=== PATIENT | male | born 1950 | race Caucasian/White ===

== ENCOUNTER → 2019-03-04 | Outpatient (REF) | payer MEDICARE ==
[2019-03-04 12:10] LABS: ALT/SGPT 25 U/L (12-78); BILIRUBIN,TOTAL 0.4 MG/DL (0.2-1.0); BLOOD UREA NITROGEN 16 MG/DL (7-18); CALCIUM LEVEL 9.7 MG/DL (8.8-10.2); CARBON DIOXIDE LEVEL 29 MEQ/L (21-32); CHLORIDE LEVEL 108 MEQ/L (98-107); CHOLESTEROL LEVEL 187 MG/DL (<200); CHOLESTEROL RISK RATIO 3.169 (<5); CREATININE FOR GFR 1.06 MG/DL (0.70-1.30); GLOMERULAR FILTRATION RATE > 60.0 (>49); GLUCOSE, FASTING 94 MG/DL (70-100); HDL CHOLESTEROL 59 MG/DL (>40); LDL CHOLESTEROL 106 MG/DL (<100); NON-HDL-C 128 MG/DL; POTASSIUM SERUM 4.4 MEQ/L (3.5-5.1); SODIUM LEVEL 142 MEQ/L (136-145); TOTAL PROTEIN 7.3 GM/DL (6.4-8.2); TRIGLYCERIDES LEVEL 108 MG/DL (<150)
[2019-03-04 19:34] LABS: FREE T4 0.88 NG/DL (0.76-1.46)
== END ==
LOC: M SFHCCLAY 07:25
PROVIDERS: ATTEND Family Medicine
DX: Z13.220 Encounter for screening for lipoid disorders (principal); Z13.1 Encounter for screening for diabetes mellitus; Z11.59 Encounter for screening for other viral diseases; R23.2 Flushing; R78.89 Finding of other specified substances, not normally found in blood
CPT/HCPCS: 80053; 80061; 84439; 84443; G0472

== ENCOUNTER 2019-08-30 05:56 | Day surgery (SDC) | payer MEDICARE ==
[~2019-08-30] VITALS: Ht 175.3 cm; Wt 86.7 kg
[~2019-08-30 05:56] MED LIST: AMIO200T PO; ELIQ5TAB PO; OMEP10CASR PO
[2019-08-30] MEDS ORDERED: LR 1,000 ML IV ONE (07:00)
[2019-08-30] MEDS ORDERED: PROPOFOL 200 MG/20 ML VIAL As Ordered ONE (07:03)
[2019-08-30] MEDS ORDERED: LIDOCAINE 2% INJ 100 MG/5 ML SDV (FOR ANES.) As Ordered ONE (07:04)
--- NOTE | 2019-08-30 08:05 | RO ---
DATE: 08/30/2019 PROCEDURE: Cardioversion. DIAGNOSIS: Atrial fibrillation. POSTPROCEDURE: Resumption of sinus rhythm. Anesthesiology: Jessi Salazar CRNA BRIEF HISTORY: Mr. Benavidez is a 69-year-old man who was diagnosed with persistent atrial fibrillation in March 2019. He has preserved left ventricular systolic function and no evidence for ischemia on stress testing. Nevertheless due to reduced exertional tolerance, it was decided to attempt to synagogue of sinus mechanism. He was started on amiodarone and has been chronically anticoagulated with Eliquis. On outpatient basis the appropriate consent was obtained. PROCEDURE NOTE: Procedure was performed in recovery room. The patient presented in fasting condition. Anesthesiology provided sedation. After appropriate sedation was accomplished he was cardioverted with defibrillator patches applied in standard position with synchronized shock. Initially 200 joules were delivered which failed to restore sinus rhythm. Subsequently second shock was applied with 360 joules in synchronized fashion that led to synagogue of sinus rhythm. The patient tolerated the procedure well and there were no immediate complications. A 12-lead ECG is currently pending. He will be seen in followup in our office next week. Will continue chronic medications. HELIO
[2019-08-30 08:15] VITALS: BP 162/78
--- NOTE | 2019-08-30 08:27 | ECGEPIP ---
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
--- NOTE | 2019-08-30 08:38 | ECGEPIP ---
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
== END 2019-08-30 08:25 | disposition home or self-care (01) ==
LOC: M SDC 05:56
PROVIDERS: ATTEND Internal Medicine Cardiovascular Disease
DX: I48.19 Other persistent atrial fibrillation (principal); Z79.899 Other long term (current) drug therapy; Z88.8 Allergy status to other drugs, medicaments and biological substances; Z85.51 Personal history of malignant neoplasm of bladder

== ENCOUNTER → 2020-02-14 | Outpatient (REF) | payer MEDICARE ==
[~2020-02-14] MED LIST changes: -AMIO200T PO; +AMIO200T3 PO
[2020-02-14 11:52] LABS: BASO % 0.7 % (0.0-1.0); EOS # 0.1 10^3/uL (0.0-0.5); EOS % 0.9 % (0.0-3.0); HEMATOCRIT 39.2 % (42.0-52.0); HEMOGLOBIN 13.1 g/dl (13.5-17.5); LYMPH # 1.5 10^3/uL (1.5-5.0); LYMPH % 27.7 % (24.0-44.0); MEAN CORPUSCULAR HEMOGLOBIN 32.9 pg (27.0-33.0); MEAN CORPUSCULAR HGB CONC 33.4 g/dl (32.0-36.5); MEAN CORPUSCULAR VOLUME 98.5 fl (80.0-96.0); MONO # 0.7 10^3/uL (0.0-0.8); MONO % 12.2 % (0.0-5.0); NEUTROPHILS # 3.2 10^3/uL (1.5-8.5); NEUTROPHILS % 58.3 % (36.0-66.0); PLATELET COUNT, AUTOMATED 221 10^3/uL (150-450); RED BLOOD COUNT 3.98 10^6/uL (4.30-6.10); WHITE BLOOD COUNT 5.5 10^3/uL (4.0-10.0)
[2020-02-14 12:08] LABS: BLOOD UREA NITROGEN 16 MG/DL (7-18); CALCIUM LEVEL 9.3 MG/DL (8.8-10.2); CARBON DIOXIDE LEVEL 26 MEQ/L (21-32); CHLORIDE LEVEL 108 MEQ/L (98-107); CREATININE FOR GFR 1.14 MG/DL (0.70-1.30); FREE T4 1.27 NG/DL (0.76-1.46); GLOMERULAR FILTRATION RATE > 60.0 (>49); GLUCOSE, FASTING 96 MG/DL (70-100); POTASSIUM SERUM 4.3 MEQ/L (3.5-5.1); SODIUM LEVEL 138 MEQ/L (136-145)
[2020-02-14 18:34] LABS: TOTAL T3 91.1 NG/DL (60.0-181.0)
== END ==
LOC: M LABDRAWC 11:16
PROVIDERS: ATTEND Internal Medicine Cardiovascular Disease
DX: I48.19 Other persistent atrial fibrillation (principal); Z79.899 Other long term (current) drug therapy

== ENCOUNTER → 2020-05-20 | Outpatient (REF) | payer MEDICARE ==
[2020-05-20 12:21] LABS: BASO # 0.1 10^3/uL (0.0-0.2); BASO % 1.3 % (0.0-1.0); EOS # 0.1 10^3/uL (0.0-0.5); EOS % 1.4 % (0.0-3.0); HEMATOCRIT 41.8 % (42.0-52.0); HEMOGLOBIN 13.9 g/dl (13.5-17.5); LYMPH # 1.7 10^3/uL (1.5-5.0); LYMPH % 30.1 % (24.0-44.0); MEAN CORPUSCULAR HEMOGLOBIN 32.5 pg (27.0-33.0); MEAN CORPUSCULAR HGB CONC 33.3 g/dl (32.0-36.5); MEAN CORPUSCULAR VOLUME 97.7 fl (80.0-96.0); MONO # 0.8 10^3/uL (0.0-0.8); MONO % 15.1 % (0.0-5.0); NEUTROPHILS # 2.9 10^3/uL (1.5-8.5); NEUTROPHILS % 51.9 % (36.0-66.0); PLATELET COUNT, AUTOMATED 235 10^3/uL (150-450); RED BLOOD COUNT 4.28 10^6/uL (4.30-6.10); WHITE BLOOD COUNT 5.6 10^3/uL (4.0-10.0)
[2020-05-20 12:23] LABS: BLOOD UREA NITROGEN 18 MG/DL (7-18); CALCIUM LEVEL 9.4 MG/DL (8.8-10.2); CARBON DIOXIDE LEVEL 29 MEQ/L (21-32); CHLORIDE LEVEL 109 MEQ/L (98-107); CREATININE FOR GFR 1.26 MG/DL (0.70-1.30); GLOMERULAR FILTRATION RATE > 60.0 (>49); GLUCOSE, FASTING 106 MG/DL (70-100); POTASSIUM SERUM 4.9 MEQ/L (3.5-5.1); SODIUM LEVEL 143 MEQ/L (136-145)
== END ==
LOC: M LABDRAWC 11:36
PROVIDERS: ATTEND Internal Medicine Cardiovascular Disease
DX: I48.19 Other persistent atrial fibrillation (principal)

== ENCOUNTER → 2020-05-29 | Outpatient (CLI) | payer MEDICARE | LOC: M LABSMTC 14:17 | PROVIDERS: ATTEND Internal Medicine Cardiovascular Disease | DX: I48.19 Other persistent atrial fibrillation (principal) | CPT/HCPCS: C9803; U0003 ==

== ENCOUNTER → 2020-08-26 | Outpatient (REF) | payer MEDICARE ==
[2020-08-26 12:14] LABS: CHOLESTEROL RISK RATIO 3.139 (<5)
== END ==
LOC: M LABDRAWC 11:17
PROVIDERS: ATTEND Physician Assistant
DX: Z13.220 Encounter for screening for lipoid disorders (principal); Z79.899 Other long term (current) drug therapy

== ENCOUNTER → 2020-09-09 | Outpatient (REF) | payer MEDICARE | LOC: M LABDRAWC 11:32 | PROVIDERS: ATTEND Physician Assistant | DX: I48.19 Other persistent atrial fibrillation (principal) ==

== ENCOUNTER → 2020-11-13 | Outpatient (REF) | payer MEDICARE ==
[2020-11-13 11:43] LABS: BASO # 0.1 10^3/uL (0.0-0.2); BASO % 0.9 % (0.0-1.0); EOS # 0.1 10^3/uL (0.0-0.5); EOS % 2.3 % (0.0-3.0); HEMOGLOBIN 13.6 g/dl (13.5-17.5); LYMPH # 1.9 10^3/uL (1.5-5.0); LYMPH % 33.4 % (24.0-44.0); MEAN CORPUSCULAR HEMOGLOBIN 31.8 pg (27.0-33.0); MEAN CORPUSCULAR HGB CONC 32.4 g/dl (32.0-36.5); MEAN CORPUSCULAR VOLUME 98.1 fl (80.0-96.0); NEUTROPHILS # 2.6 10^3/uL (1.5-8.5); NEUTROPHILS % 46.2 % (36.0-66.0); PLATELET COUNT, AUTOMATED 228 10^3/uL (150-450); RED BLOOD COUNT 4.28 10^6/uL (4.30-6.10); WHITE BLOOD COUNT 5.6 10^3/uL (4.0-10.0)
[2020-11-13 12:25] LABS: BLOOD UREA NITROGEN 19 MG/DL (7-18); CALCIUM LEVEL 9.1 MG/DL (8.8-10.2); CARBON DIOXIDE LEVEL 30 MEQ/L (21-32); CHLORIDE LEVEL 110 MEQ/L (98-107); CREATININE FOR GFR 1.11 MG/DL (0.70-1.30); FREE T4 1.14 NG/DL (0.76-1.46); GLOMERULAR FILTRATION RATE > 60.0 (>49); GLUCOSE, FASTING 93 MG/DL (70-100); POTASSIUM SERUM 4.6 MEQ/L (3.5-5.1); SODIUM LEVEL 142 MEQ/L (136-145)
== END ==
LOC: M LABDRAWC 11:16
PROVIDERS: ATTEND Internal Medicine Cardiovascular Disease
DX: Z01.810 Encounter for preprocedural cardiovascular examination (principal); I48.19 Other persistent atrial fibrillation

== ENCOUNTER → 2020-11-30 | Outpatient (REF) | payer MEDICARE ==
[2020-11-30 12:41] LABS: ALBUMIN 4.2 GM/DL (3.2-5.2); ALT/SGPT 34 U/L (12-78); BILIRUBIN,TOTAL 0.4 MG/DL (0.2-1.0); BLOOD UREA NITROGEN 21 MG/DL (7-18); CALCIUM LEVEL 9.4 MG/DL (8.8-10.2); CARBON DIOXIDE LEVEL 27 MEQ/L (21-32); CHLORIDE LEVEL 105 MEQ/L (98-107); GLOMERULAR FILTRATION RATE > 60.0 (>49); GLUCOSE, FASTING 92 MG/DL (70-100); POTASSIUM SERUM 4.5 MEQ/L (3.5-5.1); SODIUM LEVEL 139 MEQ/L (136-145); TOTAL PROTEIN 7.6 GM/DL (6.4-8.2)
== END ==
LOC: M LABDRAWC 11:10
PROVIDERS: ATTEND Physician Assistant
DX: R79.89 Other specified abnormal findings of blood chemistry (principal); E78.2 Mixed hyperlipidemia

== ENCOUNTER → 2020-12-17 | Outpatient (CLI) | payer MEDICARE | LOC: M LABSMTC 09:54 | PROVIDERS: ATTEND Internal Medicine Cardiovascular Disease | DX: Z11.52 Encounter for screening for COVID-19 (principal) ==

== ENCOUNTER 2021-01-11 10:32 | Inpatient (IN) | payer MEDICARE ==
[2021-01-11] MEDS ORDERED: ATOR1TAB19 (11:03)
[2021-01-11] MEDS ORDERED: AMLO1TAB24 (11:03)
--- NOTE | 2021-01-11 11:16 | REP ---
INDICATION: dizzy on eliquis. COMPARISON: 03/22/2010 the only prior TECHNIQUE: 4.5 mm contiguous transaxial sections were obtained from the skull base to the cerebral convexities with thin cuts through the posterior fossa without the administration of intravenous contrast. FINDINGS: The ventricles and sulci are consistent with the patient's age. There are no extra-axial fluid collections. There is no mass effect. The deep cerebral white matter is consistent with the patient's age. The orbital and petrous structures, cerebellopontine angles, and posterior fossa are unremarkable. The sella turcica, cavernous, and paracavernous structures are essentially unremarkable. The visualized portions of the paranasal sinuses and mastoid air cells are clear. Images of the skull base show no gross abnormality. IMPRESSION: Essentially unremarkable CT examination of the brain. There has been no significant change compared to the prior exam. <Electronically signed by Jack Lindsay > 01/11/21 [id number]
--- NOTE | 2021-01-11 11:26 | REP ---
INDICATION: CHEST PAIN. COMPARISON: 08/15/2016 TECHNIQUE: Portable FINDINGS: The technique utilized in obtaining the radiograph has magnified the cardiac silhouette and accentuated the interstitial markings. The superior mediastinal structures are midline. The cardiac silhouette is unremarkable in size, shape, and position. The diaphragmatic surfaces of the lungs are regular, and the costophrenic angles are clear. The pulmonary castillo are clear. The imaged osseous structures are intact. IMPRESSION: There is no acute cardiopulmonary disease. No significant change from the prior exam <Electronically signed by Jack Lindsay > 01/11/21 1129
[2021-01-11 11:43] LABS: BASO # 0.1 10^3/uL (0.0-0.2); BASO % 0.9 % (0.0-1.0); EOS % 0.2 % (0.0-3.0); HEMATOCRIT 40.8 % (42.0-52.0); HEMOGLOBIN 13.4 g/dl (13.5-17.5); LYMPH # 0.5 10^3/uL (1.5-5.0); LYMPH % 9.5 % (24.0-44.0); MEAN CORPUSCULAR HEMOGLOBIN 31.6 pg (27.0-33.0); MEAN CORPUSCULAR HGB CONC 32.8 g/dl (32.0-36.5); MEAN CORPUSCULAR VOLUME 96.2 fl (80.0-96.0); MONO # 0.6 10^3/uL (0.0-0.8); MONO % 11.3 % (2.0-8.0); NEUTROPHILS # 4.3 10^3/uL (1.5-8.5); NEUTROPHILS % 77.6 % (36.0-66.0); PLATELET COUNT, AUTOMATED 291 10^3/uL (150-450); RED BLOOD COUNT 4.24 10^6/uL (4.30-6.10); WHITE BLOOD COUNT 5.6 10^3/uL (4.0-10.0)
[2021-01-11 11:58] LABS: INR 1.26; PROTHROMBIN TIME 16.1 SECONDS (12.5-14.3)
[2021-01-11 11:59] LABS: PARTIAL THROMBOPLASTIN TIME 30.9 SECONDS (24.2-38.5)
[2021-01-11 12:20] LABS: ALBUMIN 4.1 GM/DL (3.2-5.2); BILIRUBIN,DIRECT 0.3 MG/DL (0.0-0.2); BILIRUBIN,TOTAL 0.7 MG/DL (0.2-1.0); FREE T4 1.4 NG/DL (0.76-1.46); THYROID STIMULATING HORMONE 5.36 uIU/ML (0.358-3.740); TOTAL PROTEIN 7.6 GM/DL (6.4-8.2)
[2021-01-11] MEDS ORDERED: ACETAMINOPHEN TAB 650MG DOSE (2X325MG) PO PRN (16:30)
[2021-01-11] MEDS ORDERED: MOM 30ML SUSPENSION UDC PO PRN (16:30)
[2021-01-11] MEDS ORDERED: AMIODARONE 200 MG TAB (PACERONE) PO SCH (18:00)
[2021-01-11 18:20] VITALS: BP 143/91
--- NOTE | 2021-01-11 18:25 | HPEPDOC ---
[facility] Medical History & Physical Date of Admission January 11, 2021 Date of Service: January 11, 2021 Primary Care Physician: AYANA MORALES DO Attending Physician: CLAUDINE AHUJA MD History and Physical CHIEF COMPLAINT: Light-headedness/Pre-syncope HISTORY OF PRESENT ILLNESS: Patient is a 70 year old male with a past medical history significant for persistent atrial fibrillation s/p 2 cryoablation currently on Amiodarone and Eliquis, hypertension, bladder cancer, and bilateral hearing loss who presented to the [facility] ER with complaint of feeling lightheaded. He was diagnosed with atrial fibrillation in 03/2019 at which point he was started on Amiodarone and anticoagulation. It was felt that he was likely in atrial fibrillation for a longer period of time as he was asymptomatic at the time of diagnosis. He had received an exercise stress test in 2018 and noted to have baseline atrial fibrillation with inappropriate heart rate response and exercise induced ST depression. On 08/30/2019 the patient received DC cardioversion but subsequently had a relapse on 09/09/2019. He was then sent for cryoablation in [place] by Dr. Kelly on 06/03/2020. He once again relapsed approximately 2 weeks after. Since that time the patient had noticed an increase in fatigue. On 12/22/20 he was once again sent to Dr. Kelly in [place] for a repeat ablation. Patient stated that since that time he has had worsening of his fatigue. Most recently he stated that for the past three days he has experienced several episodes where he feels light-headed like he is about to pass out. During these episodes he feels his vision gets dark. Patient states that he feels these episodes come on suddenly and it feels like his heart is jumping out of his chest. These episodes last a few minutes and end abruptly. Patient stated that his first episode was when he was out picking rhubarb to make rhubarb pie. He developed the feeling of his heart racing and felt like he was going to pass o ut. He stated this episode lasted only a couple of minutes. He had a similar episode when walking to get his mail. His most recent episode was when he was working on his boat. Each of these episodes lasted on a couple minutes before stopping. He denied any chest pain or pressure during these episodes but stated that he did get some sharp chest pain when driving his car although this was not during one of his episodes. In the ER the patient was vitally stable. He was in atrial fibrillation however rate controlled. He received a chest x-ray and head CT which were essentially normal. Laboratory studies were normal. A STAT echocardiogram was obtained in the ED which was reportedly negative for any acute findings. PAST MEDICAL HISTORY: 1. Long Standing Persistent Atrial Fibrillation 2. Hypertension 3. Bilateral Hearing Loss 4. History of Bladder cancer PAST SURGICAL HISTORY: 1. Cystoscopy with bladder resection 2. DC Cardioversion 3. Cryoablation 06/03/2020 and repeat 12/22/20 SOCIAL HISTORY: Patient lives at home with his . He is independent with his ADLs. He is a former smoker. He started smoking at the age of [age] years old and quit in the . He smoked approximately 1 ppd. He denies any IV drug use. His PCP is Dr. Morales. His Hoop Expander is Dr. Davis FAMILY HISTORY: Patients mother has a history of congestive heart failure, hypertension, and bladder cancer. His father from a bleeding ulcer. ALLERGIES: Please see below. REVIEW OF SYSTEMS: CONSTITUTIONAL: Denies fevers, chills, unintentional weightloss or weight gain. Denies night sweats HEENT: Denies cough. Denies dysphagia or odynophagia. CARDIOVASCULAR: Admits to a brief episode of chest pain described as sharp. Denies chest pressure. Admits to feeling like he is going to pass out. RESPIRATORY: Denies shortness of breath. Denies cough. Denies wheeze/ GASTROINTESTINAL: Denies abdominal pain. denies nausea, vomiting, diarrhea, or constipation GENITOURINARY: Denies dysuria, increased frequency, urgency SKIN: Denies any rashes or lesions MUSCULOSKELETAL: Denies any muscle weakness. NEUROLOGICAL: Admits to feeling lightheaded. Admits to changes in vision as feeling like his vision is going dark PSYCHIATRIC: Denies depression or anxiety ENDOCRINE: Denies heat intolerance or cold intolerance. Denies diabetes mellitus HEMATOLOGIC/LYMPHATIC: Denies easy bruising or bleeding. Denies history of DVT or PE HOME MEDICATIONS: Please see below. PHYSICAL EXAMINATION: VITAL SIGNS: Temperature 96.8, pulse 75, respiratory rate 14, blood pressure 126/80, pulse oximetry 98% on room air. GENERAL APPEARANCE: Patient is awake, alert, and oriented. Appears in no acute distress. Lying comfortably in bed HEENT: Atrauamtic, normocephalic. Eyes are nonicteric. Trachea is midline. Mu cous membranes are pink and moist. CARDIOVASCULAR: Normal S1, S2. Regular rate. irregularly irregular rhythm. No clicks, rubs, or murmurs LUNGS: Clear vesicular breath sounds bilaterally. Good respiratory effort. No wheezes, rhonchi, or rales ABDOMEN: Soft, nondistended. nontender. Normoactive bowel sounds EXTREMITIES: No edema. Full and equal pulses in bilateral upper and lower extremities NEUROLOGICAL: No focal neurological deficits PSYCHIATRIC: Mood and affect appear appropriate LABORATORY DATA: See below. IMAGING: INDICATION: CHEST PAIN. COMPARISON: 08/15/2016 TECHNIQUE: Portable FINDINGS: The technique utilized in obtaining the radiograph has magnified the cardiac silhouette and accentuated the interstitial markings. The superior mediastinal structures are midline. The cardiac silhouette is unremarkable in size, shape, and position. The diaphragmatic surfaces of the lungs are regular, and the costophrenic angles are clear. The pulmonary castillo are clear. The imaged osseous structures are intact. IMPRESSION: There is no acute cardiopulmonary disease. No significant change from the prior exam <Electronically signed by Jack Lindsay > 01/11/21 1122 INDICATION: dizzy on eliquis. COMPARISON: 03/22/2010 the only prior TECHNIQUE: 4.5 mm contiguous transaxial sections were obtained from the skull base to the cerebral convexities with thin cuts through the posterior fossa without the administration of intravenous contrast. FINDINGS: The ventricles and sulci are consistent with the patient's age. There are no extra-axial fluid collections. There is no mass effect. The deep cerebral white matter is consistent with the patient's age. The orbital and petrous structures, cerebellopontine angles, and posterior fossa are unremarkable. The sella turcica, cavernous, and paracavernous structures are essentially unremarkable. The visualized portions of the paranasal sinuses and mastoid air cells are clear. Images of the skull base show no gross abnormality. IMPRESSION: Essentially unremarkable CT examination of the brain. There has been no sign ificant change compared to the prior exam. MICROBIOLOGY: Please see below. ASSESSMENT: Patient is a 70 year old male with a past medical history significant for atrial fibrillation diagnosed in 03/2019 s/p cryoablation x2, hypertension, bladder cancer s/p resection who presented to the [facility] ER with complaint of 3 episodes of pre-syncope. Patient has had three episodes of fe eling lightheaded and a feeling of his heart racing associated with activity. Patient was admitted for evaluation and management . PLAN: 1. Pre-syncope likely 2/2 cardiogenic etiology -Patient presented with episodes of pre-syncope. He does have a history of Atrial fibrillation that was diagnosed in 03/2019. He had been on amiodarone and eliquis since that time. In 2018 he had an exercise stress test which demonstrated baseline atrial fibrillation with inappropriate rapid rate response. Due to the patients persistent symptoms a rhythm control strategy was pursued. He is currently s/p DC cardioversion in 2019 and cryoablation x2. -Patients symptoms appears to be related to exertion. His previous stress test did demonstrated inappropriate rate response previously. It is possible that his symptoms are secondary to this. However may also consider a possible bradyarrhythmia although this would be unlikely to occur with exertion as suggested in the patients three episodes -Echocardiogram was obtained in the ED. No significant findings were noted on STAT read -Will continue telemetry monitoring. If no significant findings can likely discharge. May consider repeat stress test outpatient. -Cardiology Consulted. 2. Long-standing Persistent Atrial Fibrillation -Patient diagnosed with atrial fibrillation in 03/2019. Started on anticoagulation and amiodarone at that time. DC cardioversion on 08/30/2019 with relapse on 09/09/19. Cryoablation on 06/03/2020 with relapse 2 weeks after. Repeat ablation on 12/22/2020. Patient currently in atrial fibrillation. He is rate controlled -Continue Amiodarone and Eliquis -Given patients long standing atrial fibrillation unlikely that he will successfully be cardioverted 3. Hypertension -Patient noted history of HTN. Documented white coat hypertension although he reported elevated BPs at home. He takes Norvasc at home. Will continue Norvasc. -Patient states that he was previously placed on lisinopril however it had dropped his BP too much. Will avoid Lisinopril 4. Elevated BNP -Patient has an elevated BNP. He appears euvolemic. Possible age related increase in BNP. 5. Subclinical Hypothyroidism -Elevated TSH with normal Free T4. Possibly related to Amiodarone use. Will likely fully develop hypothyroidism 6. DVT prophylaxis -Continue Eliquis DISPOSITION: Telemetry overnight. Anticipate discharge in 24-48 hours Vital Signs Vital Signs Date Time Temp Pulse Resp B/P (MAP) Pulse Ox O2 Delivery O2 Flow Rate FiO2 01/11/21 15:02 79 20 98 Room Air 01/11/21 15:00 125/78 (94) 01/11/21 10:52 98.4 Laboratory Data Labs 24H Laboratory Tests 2 01/11/21 11:20: Immature Granulocyte % (Auto) 0.5, Neutrophils (%) (Auto) 77.6H, Lymphocytes (%) (Auto) 9.5L, Monocytes (%) (Auto) 11.3H, Eosinophils (%) (Auto) 0.2, Basophils (%) (Auto) 0.9, Neutrophils # (Auto) 4.3, Lymphocytes # (Auto) 0.5L, Monocytes # (Auto) 0.6, Eosinophils # (Auto) 0.0, Basophils # (Auto) 0.1, Nucleated Red Blood Cells % (auto) 0.0, Prothrombin Time 16.1H, Prothromb Time International Ratio 1.26, Activated Partial Thromboplast Time 30.9, Total Bilirubin 0.7, Direct Bilirubin 0.3H, Aspartate Amino Transf (AST/SGOT) 17, Alanine Aminotransferase (ALT/SGPT) 31, Alkaline Phosphatase 111, GO-Qis-S-Type Natriuretic Peptide 1183H, Total Protein 7.6, Albumin 4.1, Albumin/Globulin Ratio 1.2, Lipase 55L, Thyroid Stimulating Hormone (TSH) 5.360H, Free Thyroxine 1.40 01/11/21 11:25: POC Troponin I (Misc) 0.01 01/11/21 11:27: POC Glucose (Misc Panel) 126H, POC Sodium (Misc Panel) 138, POC Potassium (Misc Panel) 4.3, POC Chloride (Misc Panel) 106, POC Total CO2 (Misc Panel) 25.0, POC Blood Urea Nitrogen (Misc Panel 22, POC Ionized Calcium (Misc Panel) 4.6, POC Creatinine (Misc Panel) 1.4H, POC Hematocrit (Misc Panel) 40.0 CBC/BMP Laboratory Tests 01/11/21 11:20 Microbiology Microbiology 01/11/21 Blood Culture, Received Pending 01/11/21 Respiratory Virus Panel (PCR) (JAY) - Final, Complete 01/11/21 Blood Culture, Received Pending Home Medications Scheduled Amiodarone HCl (Amiodarone HCl) 200 Mg Tablet, 200 MG PO QPM Amlodipine Besylate (Amlodipine Besylate) 5 Mg Tablet, 5 MG QHS Apixaban (Eliquis) 5 Mg Tablet, 5 MG PO BID Atorvastatin Calcium (Atorvastatin Calcium) 10 Mg Tablet, 10 MG QHS Omeprazole (Omeprazole) 10 Mg Capsule.dr, 20 MG PO DAILY Allergies Coded Allergies: hydrochlorothiazide (Verified Adverse Reaction, Mild, nausea, 01/11/21) A-FIB/CHADSVASC A-FIB History Current/History of A-Fib/PAF?: Yes Current PO Anticoag Therapy: Yes ABRAHAM SEVERINO DO January 11, 2021 17:35
[2021-01-11 19:00] LABS: BLOOD UREA NITROGEN 17 MG/DL (7-18); CALCIUM LEVEL 9.5 MG/DL (8.8-10.2); CARBON DIOXIDE LEVEL 28 MEQ/L (21-32); CHLORIDE LEVEL 108 MEQ/L (98-107); CREATININE FOR GFR 1.19 MG/DL (0.70-1.30); GLOMERULAR FILTRATION RATE > 60.0 (>49); GLUCOSE, FASTING 90 MG/DL (70-100); POTASSIUM SERUM 4.1 MEQ/L (3.5-5.1); SODIUM LEVEL 141 MEQ/L (136-145)
[2021-01-11 20:12] VITALS: BP 139/88
[2021-01-11] MEDS: APIXABAN 5 MG TAB (ELIQUIS) PO SCH (20:12)
[2021-01-11] MEDS ORDERED: ATORVASTATIN 10 MG TAB PO SCH (21:00)
[2021-01-11] MEDS ORDERED: amLODIPine 5 MG TAB PO SCH (21:00)
[2021-01-11 22:00] VITALS: BP 137/88
--- NOTE | 2021-01-12 05:50 | ECGEPIP ---
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
[2021-01-12 06:00] VITALS: BP 124/87
[2021-01-12 06:27] LABS: HEMOGLOBIN 12.9 g/dl (13.5-17.5); MEAN CORPUSCULAR HEMOGLOBIN 31.9 pg (27.0-33.0); MEAN CORPUSCULAR HGB CONC 33.1 g/dl (32.0-36.5); MEAN CORPUSCULAR VOLUME 96.5 fl (80.0-96.0); PLATELET COUNT, AUTOMATED 284 10^3/uL (150-450); RED BLOOD COUNT 4.04 10^6/uL (4.30-6.10); WHITE BLOOD COUNT 5.1 10^3/uL (4.0-10.0)
[2021-01-12 06:47] LABS: BLOOD UREA NITROGEN 16 MG/DL (7-18); CALCIUM LEVEL 9.1 MG/DL (8.8-10.2); CARBON DIOXIDE LEVEL 27 MEQ/L (21-32); CHLORIDE LEVEL 110 MEQ/L (98-107); CREATININE FOR GFR 1.09 MG/DL (0.70-1.30); GLOMERULAR FILTRATION RATE > 60.0 (>49); GLUCOSE, FASTING 85 MG/DL (70-100); POTASSIUM SERUM 4.2 MEQ/L (3.5-5.1); SODIUM LEVEL 142 MEQ/L (136-145)
[2021-01-12] MEDS: APIXABAN 5 MG TAB (ELIQUIS) PO SCH (08:29)
[2021-01-12 09:00] VITALS: BP 129/84
[2021-01-12] MEDS ORDERED: OMEPRAZOLE 20 MG CAP PO SCH (09:00)
--- NOTE | 2021-01-12 09:39 | IPNPDOC ---
Text Note Date of Service The patient was seen on 01/12/21. NOTE Cardiology consultation. Date: 01/12/2021. Referring physician: Dr. Veronica Consulting physician: Dr. Davis. Reason for consultation: Atrial fibrillation with presyncopal events. History of present illness: Mr. Benavidez is a 70-year-old male patient with past medical history of persistent A. fib s/p DC cardioversion, 2 cryoablation currently on amiodarone and Eliquis, HTN, bladder cancer, bilateral hearing loss who presented to ED on January 11 with complain of lightheadedness. He reports having 3 events of lightheadedness 3 days prior to presenting to the ED. He reports all the 3 evens happen in the morning which was sudden and when he was standing from sitting position a ssociated with heart racing feeling. He denies having any chest pain associated with it. The episodes lasted about a few minutes which ended abruptly. He denies passing out. Patient recently had an second cryoablation done on 12/22/2020. Patient did have an echocardiogram done in the ED which was negative for any acute findings. Patient's initial EKG done in the ED shows atrial fibrillation versus atrial flutter. Today patient was seen on bedside, he denies having any similar symptoms since admission to the hospital. He denies having any palpitation, chest pain. His vitals look stable. Patient telemetry overnight and did show he is in sinus rhythm most of the time and also in and out of A. fib. Past medical history: Persistent A. fib s/p DC cardioversion, 2 cryoablation Hypertension Bilateral hearing loss and uses hearing aids. History of bladder cancer. Past surgical history: Cystoscopy with bladder resection. DC cardioversion in August 2019. Cryoablation 06/03/2020 and repeat ablation 12/22/2020 Family history: Mother: History of CHF, HTN and bladder cancer. Father: from bleeding ulcer. Social history: Formal smoker, quit in , started smoking at age 22 [smoked one pack per day] Denies any alcohol use. Denies any IV drug abuse. REVIEW OF SYSTEMS: Constitutional: Denies fever, chills, night sweats, weight loss, headaches. Eyes: Denies any blurry vision or double vision. ENT: Denies any dysphagia, odynophagia, ear discharge, sore throat. Cardiovascular: Denies any chest pain, palpitations, orthopnea/PND. Respiratory: Denies shortness of breath, cough,pleuritic chest pain. Gastrointestinal (GI): Denies any nausea, vomiting, diarrhea, constipation, melena, hematochezia. Genitourinary: Denies dysuria, hematuria. Musculoskeletal: Denies any muscle pains or joint aches. Skin: Denies unsual rashes or ulcers. Hematology/Oncology: Denies any easy bleeding or bruising. Endocrine: Denies cold intolerance, heat intolerance, polydipsia, polyphagia, polyuria All other review of systems is negative except in HPI. General: Patient is awake, alert, oriented times three, laying in bed , no apparent distress. Neck: supple, no masses, trachea midline, no thyroid nodules or masses appreciated. Cardiovascular: S1, S2, normal rate, irregular rhythm, no murmur, rub, or gallop appreciated.; no JVD, no displacement of PMI, no carotid bruits. Respiratory: Chest is clear to auscultation bilaterally. No rhonchi, wheezes or rubs. Good respiratory effort. Abdomen: Soft, bowel sounds positive, No tenderness on palpation. Extremities: Patient has compression socks on, No edema, no tenderness. Pulses are equal and full in bilateral upper and lower extremities. Central nervous system (HHAS): Awake, alert and fully oriented. No neurological deficits. Imaging: Chest x-ray done on 01/11/2021: Reported as: There is no acute cardiopulmonary disease. No significant changes from prior exam. CT head without contrast on 01/11/2021: Reported as: Essentially unremarkable CT examination of the brain. There has been no significant change compared to the prior exam. Labs: WBC 5.1, hemoglobin 12.9, hematocrit 39, platelet 284. BMP: Sodium 142, K4.2, chloride 110, bicarbonate 27, BUN 16, creatinine 1.09, GFR more than 60%. Coagulation on 01/11/2021: INR 1.26 Blood cultures: Pending Assessment and plan: 70-year-old male patient with PMH A. fib S/P DC cardioversion in August 2019, cryoablation 2 [most recent 12/22/2020], HTN, bladder cancer S/P resection, bilateral hearing loss, presented to [facility] ED with 3 episodes of presyncopal events. These episodes lasted about 5 minutes associated with heart racing sensation. Presyncopal events: - Likely as per the patient's history these events seem to be like orthostatic in nature [he describes these episodes happening after sudden standing from sitting position]. - These episodes can also be from his atrial fibrillation given that he recently got his cryoablation and he has been in and out of atrial fibrillation and flutter. - Echocardiogram done in the ED shows no significant pathology. - Patient was on telemetry and overnight he was in and out of sinus rhythm and A. fib. He denies having any symptoms following the hospitalization. - Will hold his amlodipine upon discharge and will reevaluate in the cardiology clinic within 1 week and if needed will start it then. - Patient did well on 5 minute walk test and had no symptoms this morning. - If patient continues to have symptoms upon discharge will consider getting a Holter monitor at home to record these events. - If patient continues to have symptoms with activity related to stress test done outpatient. - Patient was educated about the same and was suggested to call Dr. Davis office if he experience any symptoms. Atrial fibrillation: - Diagnosed with ATeo fib and 03/2019. On anticoagulation and amiodarone since then. S/P DC cardioversion in August 2019 with relapse followed by cryoablation 2 in 05/2020 and 11/2020. - Will continue amiodarone and Eliquis at his home dose upon discharge. - Given patient's recent ablation his rhythm can be in atrial flutter versus fibrillation for about 3 months. And that doesn't mean the procedure has failed. - Will get an EKG prior to discharge. Hypertension: - Given the patient's presyncopal events/lightheadedness occurred after sudden standing from sitting position looks like orthostatic to me. - Will hold his amlodipine upon discharge and will consider restarting it if required upon clinic visit. Subclinical hypothyroidism: -Patient has elevated TSH and normal free T4 likely related to his amiodarone use. - We'll keep a watch on his thyroid levels and if needed will start treatment later. Disposition: Patient can be discharged home today with follow-up in cardiology clinic in one week. Conveyed the same to primary team. VS,Perez, I+O VS, [place], I+O Laboratory Tests 01/11/21 11:20 01/11/21 18:13 01/12/21 05:56 Vital Signs Date Time Temp Pulse Resp B/P (MAP) Pulse Ox O2 Delivery O2 Flow Rate FiO2 01/12/21 06:00 97.4 78 20 124/87 (99) 98 Room Air I&O- Last 24 Hours up to 6 AM 01/12/21 06:00 Intake Total 0 ml Output Total 350 ml Balance -350 ml Luna Simmons MD January 12, 2021 09:39
--- NOTE | 2021-01-12 10:24 | ECHO ---
DATE OF PROCEDURE: 01/12/2021 Age: 70 Gender: Male Height: 172 cm Weight: 83 kg REFERRING PHYSICIAN: Dr. Wiggins. INDICATION: Abnormal EKG, atrial fibrillation. MEASUREMENTS: IVS 1.1 cm LV 4.2 cm LVPW 1.1 cm LA 4.7 cm Aorta 3.7 cm IVC 2.2 cm Left atrium volume index 52 mL/m2 FINDINGS: This study is of fair technical quality. The patient is in atrial flutter with variable AV conduction. Left ventricle is normal size. There appears to be normal contractility, I estimate EF around 65%. No segmental wall motion abnormalities are appreciated. Right ventricle also appears to be normal size and systolic function. Left atrium is severely enlarged. The right atrium was relatively poorly seen. Aortic, mitral, and tricuspid valves are reasonably well seen and appear normal. Pulmonic valve was not well seen. No pericardial effusion is noted. Inferior vena cava is dilated, but collapses with inspiration. Aortic root and aortic arch appear normal. Abdominal aorta was not well seen. Doppler interrogation reveals competent aortic, mitral, and tricuspid valves, none of these valves have significant stenosis or insufficiency. Evaluation of diastolic function is inconclusive due to underlying atrial flutter. CONCLUSIONS: 1. Study is of fair technical quality, underlying atrial flutter with variable ventricular response. 2. Normal LV size with normal LV systolic function. 3. Normal RV size and systolic function. 4. Severe left atrial enlargement. 5. Elevated central venous pressure. 6. Unable to determine pulmonary artery pressure. 7. No pericardial effusion. MTDD
--- NOTE | 2021-01-12 14:00 | DS.PDOC ---
Discharge Summary General Date of Admission January 11, 2021 at 15:18 Date of Discharge 01/12/21 Primary Care Physician: AYANA HERNANDEZ DO Attending Physician: CEDRIC MODI MD Specialist/Consultants Involve: Juvencio Davis MD Discharge Summary PROCEDURES PERFORMED DURING STAY: [None]. ADMITTING DIAGNOSES: 1. Pre-syncope 2. Long-standing Persistent Atrial Fibrillation 3. Hypertension 4. Elevated BNP 5. Subclinical Hypothyroidism DISCHARGE DIAGNOSES: 1. Pre-syncope 2. Long-standing Persistent Atrial Fibrillation 3. Hypertension 4. Elevated BNP 5. Subclinical Hypothyroidism COMPLICATIONS/CHIEF COMPLAINT: Afib, Dizziness. HISTORY OF PRESENT ILLNESS: Patient is a 70 year old male with a past medical history significant for persistent atrial fibrillation s/p 2 cryoablation currently on Amiodarone and Eliquis, hypertension, bladder cancer, and bilateral hearing loss who presented to the [facility] ER with complaint of feeling lightheaded. He was diagnosed with atrial fibrillation in 03/2019 at which point he was started on Amiodarone and anticoagulation. It was felt that he was likely in atrial fibrillation for a longer period of time as he was asymptomatic at the time of diagnosis. He had received an exercise stress test in 2018 and noted to have baseline atrial fibrillation with inappropriate heart rate response and exercise induced ST depression. On 08/30/2019 the patient received DC cardioversion but subsequently had a relapse on 09/09/2019. He was then sent for cryoablation in [place] by Dr. Kelly on 06/03/2020. He once again relapsed approximately 2 weeks after. Since that time the patient had noticed an increase in fatigue. On 12/22/20 he was once again sent to Dr. Kelly in [place] for a repeat ablation. Patient stated that since that time he has had worsening of his fatigue. Most recently he stated that for the past three days he has experienced several episodes where he feels light-headed like he is about to pass out. During these episodes he feels his vision gets dark. Patient states that he feels these episodes come on suddenly and it feels like his heart is jumping out of his chest. These episodes last a few minutes and end abruptly. Patient stated that his first episode was when he was out picking rhubarb to make rhubarb pie. He developed the feeling of his heart racing and felt like he was going to pass out. He stated this episode lasted only a couple of minutes. He had a similar episode when walking to get his mail. His most recent episode was when he was working on his boat. Each of these episodes lasted on a couple minutes before stopping. He denied any chest pain or pressure during these episodes but stated that he did get some sharp chest pain when driving his car although this was not during one of his episodes. In the ER the patient was vitally stable. He was in atrial fibrillation however rate controlled. He received a chest x-ray and head CT which were essentially normal. Laboratory studies were normal. A STAT echocardiogram was obtained in the ED which was reportedly negative for any acute findings. On admission patient was placed on telemetry. There were no arrhythmias documented on telemetry overnight. Patient was seen by Cardiology with recommendations to stop his lisinopril and follow-up in the office in a week. It was felt that the patients symptoms may be in part related to low blood pressure from his Norvasc and when he stands up quickly he becomes tachycardic as a compensatory mechanism HOSPITAL COURSE: 1. Pre-syncope -Patient presented with episodes of pre-syncope. He does have a history of Atrial fibrillation that was diagnosed in 03/2019. He had been on amiodarone and eliquis since that time. In 2018 he had an exercise stress test which demonstrated baseline atrial fibrillation with inappropriate rapid rate response. Due to the patients persistent symptoms a rhythm control strategy was pursued. He is currently s/p DC cardioversion in 2019 and cryoablation x2. -Patient evaluated by Cardiology. Recommendations to discontinue Norvasc as patients symptoms may be related to hypotension. He had negative orthostatic vital signs. -Patient to follow-up with Cardiology in 1 week 2. Long-standing Persistent Atrial Fibrillation -Patient diagnosed with atrial fibrillation in 03/2019. Started on anticoagulation and amiodarone at that time. DC cardioversion on 08/30/2019 with relapse on 09/09/19. Cryoablation on 06/03/2020 with relapse 2 weeks after. Repeat ablation on 12/22/2020. Patient currently in atrial fibrillation. He is rate con trolled -Continue Amiodarone and Eliquis -He has had a recent cryoablation. May take up to 3 months to see if patients atrial fibrillation/flutter resolves. 3. Hypertension -Patient noted history of HTN. Documented white coat hypertension although he reported elevated BPs at home. He takes Norvasc at home. -Will discontinue Norvasc and patient will follow-up with Cardiology in 1 week. It is possible that his symptoms are related to low blood pressure particularly with standing and his accelerated heart rate is compensatory 4. Elevated BNP -Patient has an elevated BNP. He appears euvolemic. Possible age related increase in BNP. 5. Subclinical Hypothyroidism -Elevated TSH with normal Free T4. Possibly related to Amiodarone use. Will likely fully develop hypothyroidism DISCHARGE MEDICATIONS: Please see below. ALLERGIES: Please see below. PHYSICAL EXAMINATION ON DISCHARGE: VITAL SIGNS: Please see below. GENERAL APPEARANCE: Patient is awake, alert, and oriented. Appears in no acute distress. Lying comfortably in bed HEENT: Atraumatic, normocephalic. Eyes are nonicteric. Trachea is midline. Mucous membranes are pink and moist. CARDIOVASCULAR: Normal S1, S2. Regular rate. irregularly irregular rhythm. No clicks, rubs, or murmurs LUNGS: Clear vesicular breath sounds bilaterally. Good respiratory effort. No wheezes, rhonchi, or rales ABDOMEN: Soft, nondistended. nontender. Normoactive bowel sounds EXTREMITIES: No edema. Full and equal pulses in bilateral upper and lower extremities NEUROLOGICAL: No focal neurological deficits PSYCHIATRIC: Mood and affect appear appropriate LABORATORY DATA: Please see below. IMAGING: INDICATION: CHEST PAIN. COMPARISON: 08/15/2016 TECHNIQUE: Portable FINDINGS: The technique utilized in obtaining the radiograph has magnified the cardiac silhouette and accentuated the interstitial markings. The superior mediastinal structures are midline. The cardiac silhouette is unremarkable in size, shape, and position. The diaphragmatic surfaces of the lungs are regular, and the costophrenic angles are clear. The pulmonary castillo are clear. The imaged osseous structures are intact. IMPRESSION: There is no acute cardiopulmonary disease. No significant change from the prior exam INDICATION: dizzy on eliquis. COMPARISON: 03/22/2010 the only prior TECHNIQUE: 4.5 mm contiguous transaxial sections were obtained from the skull base to the cerebral convexities with thin cuts through the posterior fossa without the administration of intravenous contrast. FINDINGS: The ventricles and sulci are consistent with the patient's age. There are no extra-axial fluid collections. There is no mass effect. The deep cerebral white matter is consistent with the patient's age. The orbital and petrous structures, cerebellopontine angles, and posterior fossa are unremarkable. The sella turcica, cavernous, and paracavernous structures are essentially unremarkable. The visualized portions of the paranasal sinuses and mastoid air cells are clear. Images of the skull base show no gross abnormality. IMPRESSION: Essentially unremarkable CT examination of the brain. There has been no significant change compared to the prior exam. ECHOCARDIOGRAM DATE OF PROCEDURE: 01/12/2021 Age: 70 Gender: Male Height: 172 cm Weight: 83 kg REFERRING PHYSICIAN: Dr. Wiggins. INDICATION: Abnormal EKG, atrial fibrillation. MEASUREMENTS: IVS 1.1 cm LV 4.2 cm LVPW 1.1 cm LA 4.7 cm Aorta 3.7 cm IVC 2.2 cm Left atrium volume index 52 mL/m2 FINDINGS: This study is of fair technical quality. The patient is in atrial flutter with variable AV conduction. Left ventricle is normal size. There appears to be normal contractility, I estimate EF around 65%. No segmental wall motion abnormalities are appreciated. Right ventricle also appears to be normal size and systolic function. Left atrium is severely enlarged. The right atrium was relatively poorly seen. Aortic, mitral, and tricuspid valves are reasonably well seen and appear normal.Pulmonic valve was not well seen. No pericardial effusion is noted. Inferior vena cava is dilated, but collapses with inspiration. Aortic root and aortic arch appear normal. Abdominal aorta was not well seen. Doppler interrogation reveals competent aortic, mitral, and tricuspid valves, none of these valves have significant stenosis or insufficiency. Evaluation of diastolic function is inconclusive due to underlying atrial flutter. CONCLUSIONS: 1. Study is of fair technical quality, underlying atrial flutter with variable ventricular response. 2. Normal LV size with normal LV systolic function. 3. Normal RV size and systolic function. 4. Severe left atrial enlargement. 5. Elevated central venous pressure. 6. Unable to determine pulmonary artery pressure. 7. No pericardial effusion. PROGNOSIS: Good ACTIVITY: [As tolerated]. DIET: As tolerated DISCHARGE PLAN: Patient is to be discharged home with follow-up with his Leasing Specialist in 1 week. He is to stop Norvasc. He is to follow-up with PCP in 5- 10 days DISPOSITION: 01 Home, Self-Care. DISCHARGE CONDITION: [Stable]. TIME SPENT ON DISCHARGE: Greater than 40 minutes. Vital Signs/I&Os Vital Signs Date Time Temp Pulse Resp B/P (MAP) Pulse Ox O2 Delivery O2 Flow Rate FiO2 01/12/21 09:00 93 129/84 (99) 01/12/21 06:00 97.4 20 98 Room Air I&O- Last 24 Hours up to 6 AM 01/12/21 06:00 Intake Total 0 ml Output Total 350 ml Balance -350 ml Laboratory Data Labs 24H Laboratory Tests 2 01/11/21 18:13: Anion Gap 5L, Glomerular Filtration Rate > 60.0, Calcium Level 9.5 01/12/21 05:56: Anion Gap 5L, Glomerular Filtration Rate > 60.0, Calcium Level 9.1, Nucleated Red Blood Cells % (auto) 0.0 CBC/BMP Laboratory Tests 01/11/21 18:13 01/12/21 05:56 Microbiology Microbiology 01/11/21 Blood Culture, Received Pending 01/11/21 Respiratory Virus Panel (PCR) (JAY) - Final, Complete 01/11/21 Blood Culture - Preliminary, Resulted No growth after 24 hours . All specim... Discharge Medications Scheduled Amiodarone HCl (Amiodarone HCl) 200 Mg Tablet, 200 MG PO QPM, (Reported) Apixaban (Eliquis) 5 Mg Tablet, 5 MG PO BID, (Reported) Atorvastatin Calcium (Atorvastatin Calcium) 10 Mg Tablet, 10 MG QHS, (Reported) Omeprazole (Omeprazole) 10 Mg Capsule.dr, 20 MG PO DAILY, (Reported) Allergies Coded Allergies: hydrochlorothiazide (Verified Adverse Reaction, Mild, nausea, 01/11/21) GME ATTESTATION GME ATTESTATION My faculty preceptor for this patient encounter was physically present during the encounter and was fully available. All aspects of the patient interview, examination, medical decision making process, and medical care plan development were reviewed and approved by the faculty preceptor. The faculty preceptor is aware and concurs with the plan as stated in the body of this note and will attest to such by his/her cosignature. ATTENDING NOTE I, Cedric Modi, have independently examined this patient and performed my own physical exam, as well as reviewed the documentation and edited where necessary. I have discussed in detail with the resident / student the findings and plan of treatment as documented by the resident / student and edited their note. I agree with their findings and treatment plan and have edited their documentation. I will continue to follow the patient during this hospital stay. Time spent on discharge 35 minutes ABRAHAM SEVERINO DO January 12, 2021 14:00 CEDRIC MODI MD January 12, 2021 14:56
--- NOTE | 2021-01-12 18:23 | ECGEPIP ---
[facility] Test Date: 2021-01-12 Pat Name: NUBIA POSADAS Department: Room: [place] [address] Gender: Male Reducer: RUDY : 1950 Requested By: Luna Simmons Order Number: [id number] Reading MD: Ricco Quezada Measurements Intervals [place] Rate: 78 P: -20 SD: 112 QRS: 58 QRSD: 96 T: -80 QT: 416 QTc: 474 Interpretive Statements Normal sinus rhythm with short pr interval ST & T wave abnormality, consider inferior/lateral ischemia Prolonged QTc Rhythm change from tracing done 01-11-21 Electronically Signed on 01-12-2021 18:23:36 EDT by Ricco Quezada
== END 2021-01-12 12:19 | disposition home or self-care (01) | DRG 312 ==
LOC: M ED 10:32 → EDBD 10:32 → M ED INP 15:18 → ENRESERV 17:31 → M MSPAV 18:20
PROVIDERS: ADMIT Internal Medicine; ATTEND Internal Medicine
DX: I95.2 Hypotension due to drugs (principal); I48.19 Other persistent atrial fibrillation; I10 Essential (primary) hypertension; R79.89 Other specified abnormal findings of blood chemistry; E02 Subclinical iodine-deficiency hypothyroidism; H91.93 Unspecified hearing loss, bilateral; Z88.8 Allergy status to other drugs, medicaments and biological substances; Z79.899 Other long term (current) drug therapy; Z79.01 Long term (current) use of anticoagulants; Z20.822 Contact with and (suspected) exposure to COVID-19; Z85.51 Personal history of malignant neoplasm of bladder; Z87.891 Personal history of nicotine dependence

== ENCOUNTER → 2021-03-12 | Outpatient (REF) | payer MEDICARE ==
[~2021-03-12] MED LIST changes: +AMLO1TAB24; +ATOR1TAB19
[2021-03-12 13:25] LABS: ALBUMIN 4.1 GM/DL (3.2-5.2); ALT/SGPT 31 U/L (12-78); BILIRUBIN,TOTAL 0.8 MG/DL (0.2-1.0); BLOOD UREA NITROGEN 13 MG/DL (7-18); CALCIUM LEVEL 9.2 MG/DL (8.8-10.2); CARBON DIOXIDE LEVEL 29 MEQ/L (21-32); CHLORIDE LEVEL 107 MEQ/L (98-107); CHOLESTEROL LEVEL 222 MG/DL (<200); CHOLESTEROL RISK RATIO 2.883 (<5); CREATININE FOR GFR 1.19 MG/DL (0.70-1.30); GLOMERULAR FILTRATION RATE > 60.0 (>49); GLUCOSE, FASTING 95 MG/DL (70-100); HDL CHOLESTEROL 77 MG/DL (>40); LDL CHOLESTEROL 132 MG/DL (<100); NON-HDL-C 145 MG/DL; POTASSIUM SERUM 5.3 MEQ/L (3.5-5.1); SODIUM LEVEL 136 MEQ/L (136-145); TOTAL PROTEIN 7.4 GM/DL (6.4-8.2); TRIGLYCERIDES LEVEL 65 MG/DL (<150)
== END ==
LOC: M SFHCCLAY 07:06
PROVIDERS: ATTEND Family Medicine
DX: Z00.00 Encounter for general adult medical examination without abnormal findings (principal); Z13.220 Encounter for screening for lipoid disorders; I48.19 Other persistent atrial fibrillation; E78.00 Pure hypercholesterolemia, unspecified

== ENCOUNTER → 2021-03-23 | Outpatient (CLI) | payer MEDICARE | LOC: M PLAIMG 07:51 | PROVIDERS: ATTEND Family Medicine | DX: R91.1 Solitary pulmonary nodule (principal) ==

== ENCOUNTER → 2021-04-16 | Outpatient (REF) | payer MEDICARE | LOC: M LABDRAWC 11:43 | PROVIDERS: ATTEND Physician Assistant | DX: I48.19 Other persistent atrial fibrillation (principal) ==

== ENCOUNTER → 2021-04-24 | Outpatient (CLI) | payer MEDICARE | LOC: M LABSMTC 10:09 | PROVIDERS: ATTEND Anesthesiology | DX: Z01.812 Encounter for preprocedural laboratory examination (principal); Z20.822 Contact with and (suspected) exposure to COVID-19 ==

== ENCOUNTER → 2021-04-29 | Day surgery (SDC) | payer MEDICARE ==
[~2021-04-29] VITALS: Ht 172.7 cm; Wt 71.7 kg
[~2021-04-29] MED LIST changes: +NS 1,000 ML IV ONE; +propofoL 200 MG/20 ML VIAL As Ordered ONE
--- NOTE | 2021-04-29 09:58 | ROOR ---
Patient Name: Familia Benavidez Procedure Date: 04/29/2021 9:27 AM Date of : 1950 Age: 70 Room: [facility] Gender: Male Note Status: Finalized Procedure: Colonoscopy Indications: Screening for colorectal malignant neoplasm, This is the patient's first colonoscopy Providers: Antonio Wells MD Referring MD: Radha HERNANDEZ DO Requestmary Provider: Medicines: Monitored Anesthesia Care Complications: No immediate complications. Procedure: Pre-Anesthesia Assessment: - Prior to the procedure, a History and Physical was performed, and patient medications and allergies were reviewed. The patient is competent. The risks and benefits of the procedure and the sedation options and risks were discussed with the patient. All questions were answered and informed consent was obtained. Patient identification and proposed procedure were verified by the physician, the nurse and the machine feed operator in the endoscopy suite. Mental Status Examination: alert and oriented. Airway Examination: normal oropharyngeal airway and neck mobility. Prophylactic Antibiotics: The patient does not require prophylactic antibiotics. Prior Anticoagulants: The patient has taken no previous anticoagulant or antiplatelet agents. ASA Grade Assessment: III - A patient with severe systemic disease. After reviewing the risks and benefits, the patient was deemed in satisfactory condition to undergo the procedure. The anesthesia plan was to use monitored anesthesia care (MAC). Immediately prior to administration of medications, the patient was re-assessed for adequacy to receive sedatives. The heart rate, respiratory rate, oxygen saturations, blood pressure, adequacy of pulmonary ventilation, and response to care were monitored throughout the procedure. The physical status of the patient was re-assessed after the procedure. The Colonoscope was introduced through the anus and advanced to the cecum, identified by appendiceal orifice and ileocecal valve. The colonoscopy was performed without difficulty. The patient tolerated the procedure well. The quality of the bowel preparation was excellent. Findings: The perianal and digital rectal examinations were normal. Many medium-mouthed diverticula were found in the sigmoid colon and descending colon. The exam was otherwise without abnormality. Impression: - Diverticulosis in the sigmoid colon and in the descending colon. - The examination was otherwise normal. - No specimens collected. Recommendation: - Discharge patient to home. - Resume previous diet. - Continue present medications. - Repeat colonoscopy in 10 years for screening purposes. Procedure Code(s): --- Professional --- G0121, Colorectal cancer screening; colonoscopy on individual not meeting criteria for high risk Diagnosis Code(s): --- Professional --- Z12.11, Encounter for screening for malignant neoplasm of colon K57.30, Diverticulosis of large intestine without perforation or abscess without bleeding CPT copyright 2019 [employer] [place] [employer]. All rights reserved. The codes documented in this report are preliminary and upon transverse abdominal muscle surgeon review may be revised to meet current compliance requirements. Antonio Wells MD Antonio Wells MD 04/29/2021 9:58:04 AM Electronically signed by Antonio Wells MD Number of Addenda: 0 Note Initiated On: 04/29/2021 9:27 AM Estimated Blood Loss: Estimated blood loss: none.
[2021-04-29 10:15] VITALS: BP 115/78
== END | disposition home or self-care (01) ==
LOC: M OPP 07:50
PROVIDERS: ATTEND Surgery
DX: Z12.11 Encounter for screening for malignant neoplasm of colon (principal); K57.30 Diverticulosis of large intestine without perforation or abscess without bleeding; I48.91 Unspecified atrial fibrillation; M19.90 Unspecified osteoarthritis, unspecified site; Z85.51 Personal history of malignant neoplasm of bladder; Z87.891 Personal history of nicotine dependence; Z88.8 Allergy status to other drugs, medicaments and biological substances; Z79.01 Long term (current) use of anticoagulants; Z79.899 Other long term (current) drug therapy

== ENCOUNTER → 2021-06-28 | Outpatient (REF) | payer MEDICARE ==
[~2021-06-28] MED LIST changes: -NS 1,000 ML IV ONE; -propofoL 200 MG/20 ML VIAL As Ordered ONE
== END ==
LOC: M LABDRAWC 11:41
PROVIDERS: ATTEND Physician Assistant
DX: I48.19 Other persistent atrial fibrillation (principal)

== ENCOUNTER → 2021-07-14 | Outpatient (CLI) | payer MEDICARE ==
--- NOTE | 2021-07-14 10:24 | REP ---
INDICATION: PULMONARY NODULE COMPARISON: 03/23/2021 TECHNIQUE: Axial noncontrast images from the thoracic inlet to the upper abdomen with coronal and sagittal reformations. This CT examination was performed using the following dose reduction techniques: Automated exposure control, adjustment of mA and/or kv according to the patient's size, and use of iterative reconstruction technique. FINDINGS: Current examination demonstrates diffuse bilateral pulmonary nodules with surrounding halo of ground-glass opacity as well as an early left lower lobe infiltrate and reactive adenopathy. Differential diagnosis includes metastatic disease as well as septic emboli and multifocal pneumonia. Findings and increased from prior examination. Tracheobronchial tree is patent. No effusion. No pneumothorax. Thoracic aorta, pulmonary vasculature, and heart/pericardium are relatively stable with cardiomegaly again suggested. No pericardial effusion. Musculoskeletal structures are intact and without acute osseous abnormality. IMPRESSION: Scattered nodules with surrounding ground-glass opacities as well as left lower lobe infiltrate and reactive adenopathy. Differential diagnosis includes but is not limited to septic emboli, multifocal pneumonia/inflammatory process, and metastatic disease. <Electronically signed by Jose M Moe > 07/14/21 1021
== END ==
LOC: M RAD 08:06
PROVIDERS: ATTEND Family Medicine
DX: R91.8 Other nonspecific abnormal finding of lung field (principal)

== ENCOUNTER → 2021-07-28 | Outpatient (REF) | payer MEDICARE ==
[~2021-07-28] MED LIST changes: -AMIO200T3 PO; +AMIO200T49 PO
[2021-07-28 12:17] LABS: BASO # 0.1 10^3/uL (0.0-0.2); BASO % 1.1 % (0.0-1.0); EOS # 0.1 10^3/uL (0.0-0.5); EOS % 1.3 % (0.0-3.0); HEMATOCRIT 41.8 % (42.0-52.0); HEMOGLOBIN 13.6 g/dl (13.5-17.5); LYMPH % 37.7 % (24.0-44.0); MEAN CORPUSCULAR HEMOGLOBIN 31.5 pg (27.0-33.0); MEAN CORPUSCULAR HGB CONC 32.5 g/dl (32.0-36.5); MEAN CORPUSCULAR VOLUME 96.8 fl (80.0-96.0); MONO # 0.7 10^3/uL (0.0-0.8); MONO % 13.6 % (2.0-8.0); NEUTROPHILS # 2.5 10^3/uL (1.5-8.5); NEUTROPHILS % 45.9 % (36.0-66.0); PLATELET COUNT, AUTOMATED 288 10^3/uL (150-450); RED BLOOD COUNT 4.32 10^6/uL (4.30-6.10); WHITE BLOOD COUNT 5.4 10^3/uL (4.0-10.0)
[2021-07-28 12:45] LABS: RHEUMATOID FACTOR QUANT < 10.0 IU/ML (<15.0)
[2021-07-28 12:56] LABS: ERYTHROCYTE SEDIMENTATION RATE 16 mm/hr (0-20)
[2021-09-03 13:08] LABS: ANA (HEP2) Negative (.); ASPERGILLUS GALACTOMANNAN AG 0.15 Index (0.00-0.49)
== END ==
LOC: M LABDRAWC 11:45
PROVIDERS: ATTEND Internal Medicine Pulmonary Disease
DX: R91.8 Other nonspecific abnormal finding of lung field (principal)

== ENCOUNTER → 2021-08-02 | Outpatient (CLI) | payer MEDICARE ==
[~2021-08-02] MED LIST changes: +AMIO200T3 PO; -AMIO200T49 PO
--- NOTE | 2021-08-04 07:45 | REP ---
INDICATION: DIAGNOSING ABNORMAL FINDING OF LUNG R91.8. COMPARISON: CT chest without IV contrast, 07/14/2021. TECHNIQUE: Following the intravenous injection of 9.1 mCi of FDG and a standard uptake period, a noncontrast CT scan, followed by a PET scan were acquired along the length of the body from the base of the skull to the mid thighs. The noncontrast helical CT imaging was performed, without breath hold, for attenuation correction of PET images and anatomic correlation, but not for primary interpretation, as it is not a of standard diagnostic quality. Images were reviewed in the axial, coronal and sagittal planes. FINDINGS: Head and neck: There is a normal distribution of FDG activity in the visualized brain parenchyma. There is nasal septal deviation to the right. There is normal uptake within the soft tissues of the neck and glandular structures. There is no lymphadenopathy identified. There is minimal calcific vascular disease of both carotid bifurcations. Chest: There has been interval decrease in size, number and density of the multiple pulmonary nodules, bilaterally. Additionally, the area of airspace consolidation in the lower lobe of the left lung demonstrates interval improvement. The foci of airspace consolidation demonstrate FDG activity, max SUV 2.3, consistent with inflammation/infection. There are no pleural effusions. The heart is enlarged. There is no pericardial effusion. There is minimal calcific vascular disease of the coronary arteries. There is no adenopathy in the mediastinum, hilum or axilla by size criterion or metabolic activity. Abdomen and pelvis: There is a normal distribution of FDG activity within the gastrointestinal and genitourinary tract. No evidence of lymphadenopathy. There is minimal calcific vascular disease of the abdominal aorta. There is sigmoid diverticulosis without diverticulitis. Musculoskeletal: There are no suspicious hypermetabolic, osteolytic or osteo sclerotic lesions. IMPRESSION: 1. There has been interval decrease in size and density of the multiple pulmonary nodules bilaterally. Additionally, the area of airspace consolidation in the lower lobe of the left lung has demonstrated interval improvement. The degree of activity associated with the pulmonary abnormalities is consistent with inflammation/infection. 2. There are no foci of abnormal FDG activity to suggest neoplastic disease. 3. Other findings as noted. <Electronically signed by Tim Wood > 08/04/21 [id number]
== END ==
LOC: M PLARAD 15:00
PROVIDERS: ATTEND Internal Medicine Pulmonary Disease
DX: R91.8 Other nonspecific abnormal finding of lung field (principal); Z85.51 Personal history of malignant neoplasm of bladder
CPT/HCPCS: 78815; A9552

== ENCOUNTER → 2021-08-12 | Outpatient (CLI) | payer MEDICARE | LOC: M LAB 13:07 | PROVIDERS: ATTEND Internal Medicine Infectious Disease | DX: R91.8 Other nonspecific abnormal finding of lung field (principal) ==

== ENCOUNTER → 2021-08-12 | Outpatient (CLI) | payer MEDICARE ==
--- NOTE | 2021-08-13 09:53 | ECHO ---
ECHOCARDIOGRAM DATE OF PROCEDURE: 08/12/2021 Age: Gender: Height: 173 meters Weight: 84 kg REFERRING PHYSICIAN: Angelito Eastman MD INDICATION: Atrial fibrillation; abnormal finding on lung exam MEASUREMENTS: IVS: 1.2 LV: 4.3 LVPW: 1.2 LA: 3.9 Aorta: 3.4 IVC: 1.9 Left atrial volume index: 46 FINDINGS: This study is of acceptable technical quality. Underlying atrial fibrillation with controlled rate. Left ventricle is normal size. Mild left ventricular hypertrophy is noted. Overall normal left ventricular (LV) systolic function with estimated left ventricular ejection fraction (LVEF) 60% to 65%. Normal right ventricle. Severe biatrial enlargement. Aortic valve is mildly sclerotic but has three cusps and normal mobility. There are also mild degenerative abnormalities of mitral valve. Tricuspid valve appears normal. Pulmonic valve was not well seen. No pericardial effusion is noted. Inferior vena cava is upper limits of normal size and only partially collapses with inspiration suggestive of at least mildly elevated central venous pressure. Aortic root and aortic arch appear normal. Doppler interrogation of aortic valve reveals no significant stenosis or insufficiency. There is mild mitral and mild tricuspid insufficiency. Calculated pulmonary artery pressure is going to be close to 40 mmHg corresponding to moderate pulmonary hypertension. Evaluation of diastolic function inconclusive due to underlying atrial fibrillation. CONCLUSIONS: 1. Study is of acceptable technical quality; underlying atrial fibrillation with controlled rate. 2. Normal left ventricle (LV) size with mild left ventricular hypertrophy (LVH) and preserved left ventricular (LV) systolic function. 3. No hemodynamically significant valvular disease. 4. Likely at least borderline elevated central venous pressure and moderate pulmonary hypertension. 5. Severe biatrial enlargement.
== END ==
LOC: M CARPUL 13:02
DX: R91.8 Other nonspecific abnormal finding of lung field (principal); R68.89 Other general symptoms and signs

== ENCOUNTER → 2021-08-16 | Outpatient (CLI) | payer MEDICARE ==
[~2021-08-16] MED LIST changes: -AMIO200T3 PO; +AMIO200T49 PO
[2021-08-23 08:07] LABS: ASPERGILLUS FLAVUS ABY Negative (Neg:<1:1); ASPERGILLUS FUMIGATUS ABY Negative (Neg:<1:1); ASPERGILLUS NIGER ABY Negative (Neg:<1:1); BLASTOMYCES ANTIBODY LEVEL Negative (Neg:<1:1); CRYPTOCOCCUS ANTIGEN SER Negative (Negative)
== END ==
LOC: M LAB 09:12
PROVIDERS: ATTEND Internal Medicine Pulmonary Disease
DX: R91.8 Other nonspecific abnormal finding of lung field (principal)

== ENCOUNTER → 2021-08-18 | Outpatient (REF) | payer MEDICARE ==
[~2021-08-18] MED LIST changes: +AMIO200T3 PO; -AMIO200T49 PO
[2021-08-23 17:07] LABS: HISTOPLASMA GAL'MANNAN AG UR <0.5 (<0.5 ng/mL)
== END ==
LOC: M LABDRAWC 11:05
PROVIDERS: ATTEND Internal Medicine Pulmonary Disease
DX: R91.8 Other nonspecific abnormal finding of lung field (principal)

== ENCOUNTER → 2021-11-01 | Outpatient (CLI) | payer MEDICARE ==
[~2021-11-01] MED LIST changes: -AMIO200T3 PO; +AMIO200T49 PO
== END ==
LOC: M RAD 07:06
PROVIDERS: ATTEND Internal Medicine Pulmonary Disease
DX: R91.8 Other nonspecific abnormal finding of lung field (principal)

== ENCOUNTER → 2021-11-19 | Outpatient (REF) | payer MEDICARE ==
[~2021-11-19] MED LIST changes: +LISI20TA33 PO
== END ==
LOC: M SMT 17:04
PROVIDERS: ATTEND Urology
DX: Z85.51 Personal history of malignant neoplasm of bladder (principal)

== ENCOUNTER → 2021-12-07 | Outpatient (REF) | payer MEDICARE ==
[2021-12-07 11:28] LABS: PLATELET COUNT, AUTOMATED 231 10^3/uL (150-450)
[2021-12-07 12:09] LABS: INR 0.92; PROTHROMBIN TIME 12.8 SECONDS (12.7-14.5)
== END ==
LOC: M LABDRAWC 11:01
PROVIDERS: ATTEND Internal Medicine Pulmonary Disease
DX: Z01.812 Encounter for preprocedural laboratory examination (principal); Z79.01 Long term (current) use of anticoagulants

== ENCOUNTER 2021-12-08 07:25 | Day surgery (SDC) | payer MEDICARE ==
[~2021-12-08] VITALS: Ht 172.7 cm; Wt 86.5 kg
[~2021-12-08 07:25] MED LIST changes: +ALBUTEROL SULFATE 2.5 MG/0.5 ML INH NEB SOLN INH ONE; +LIDOCAINE 1% MDV 20ML VIAL SQ PRN; +LIDOCAINE 4% INJ 5ML AMP NEB ONE; +LR 1,000 ML IV ONE
[2021-12-08] MEDS ORDERED: propofoL 200 MG/20 ML VIAL As Ordered ONE (07:54)
[2021-12-08] MEDS ORDERED: LIDOCAINE 2% 100MG/5ML SDV (FOR ANES.) As Ordered ONE (07:54)
[2021-12-08] MEDS ORDERED: ROCURONIUM BROMIDE 50 MG/5 ML VIAL As Ordered ONE (07:54)
[2021-12-08] MEDS ORDERED: MIDAZOLAM INJ 2MG/2ML VIAL (J2250 PER 1MG) As Ordered ONE (07:54)
[2021-12-08] MEDS ORDERED: SUGAMMADEX SODIUM 500 MG/5 ML VIAL (BRIDION) As Ordered ONE (07:54)
[2021-12-08] MEDS ORDERED: fentaNYL 100 MCG/2 ML INJECTION As Ordered ONE (07:54)
[2021-12-08] MEDS ORDERED: ONDANSETRON 4MG/2ML VIAL As Ordered ONE (07:55)
[2021-12-08] MEDS ORDERED: dexameTHASONE 4 MG/ML 1ML VIAL (J1100 PER 1MG) As Ordered ONE (07:55)
[2021-12-08] MEDS ORDERED: CETACAINE SPRAY 5GM As Ordered ONE (08:36)
[2021-12-08] MEDS ORDERED: LIDOCAINE 1% SDV 30ML VIAL As Ordered ONE (08:36)
[2021-12-08] MEDS ORDERED: EPINEPHrine 1MG/10ML SYRINGE 1.5IN As Ordered ONE (08:36)
[2021-12-08] MEDS ORDERED: ACETAMINOPHEN 1000MG 100ML IV BTL (OFIRMEV) (J0131 PER 10MG) As Ordered ONE (09:10)
[2021-12-08] MEDS ORDERED: ePHEDrine SULFATE 25 MG/5 ML(5MG/ML) SYRINGE As Ordered ONE (09:49)
[2021-12-08] MEDS ORDERED: MEPERIDINE INJ 25 MG/ML VIAL (J2175) IV PRN (11:20)
[2021-12-08] MEDS ORDERED: ONDANSETRON 4MG/2ML VIAL IV PRN (11:20)
[2021-12-08] MEDS ORDERED: oxyCODONE 5MG TAB PO PRN (11:20)
[2021-12-08] MEDS ORDERED: fentaNYL 100 MCG/2 ML INJECTION IV PRN (11:20)
[2021-12-08] MEDS ORDERED: LR 1,000 ML IV SCH (11:20)
[2021-12-08 11:26] VITALS: BP 125/72
== END 2021-12-08 12:00 | disposition home or self-care (01) ==
LOC: M SDC 07:25
PROVIDERS: ATTEND Internal Medicine Pulmonary Disease
DX: R91.8 Other nonspecific abnormal finding of lung field (principal); I10 Essential (primary) hypertension; E78.00 Pure hypercholesterolemia, unspecified; K21.9 Gastro-esophageal reflux disease without esophagitis; M19.90 Unspecified osteoarthritis, unspecified site; M51.9 Unspecified thoracic, thoracolumbar and lumbosacral intervertebral disc disorder; Z85.51 Personal history of malignant neoplasm of bladder; Z87.891 Personal history of nicotine dependence; Z88.8 Allergy status to other drugs, medicaments and biological substances; Z79.899 Other long term (current) drug therapy; Z79.01 Long term (current) use of anticoagulants
CPT/HCPCS: 31623; 31629; 31652; 71045; 76000; 87070; 87116; 87205; 87206; 87426; 88104; 88173; J0131; J0171; J1100; J2250; J2405; J3010; S2900

== ENCOUNTER → 2021-12-27 | Outpatient (REF) | payer MEDICARE ==
[~2021-12-27] MED LIST changes: -ALBUTEROL SULFATE 2.5 MG/0.5 ML INH NEB SOLN INH ONE; -LIDOCAINE 1% MDV 20ML VIAL SQ PRN; -LIDOCAINE 4% INJ 5ML AMP NEB ONE; -LR 1,000 ML IV ONE
[2021-12-27 12:22] LABS: ALT/SGPT 33 U/L (12-78); BILIRUBIN,TOTAL 0.6 MG/DL (0.2-1.0); BLOOD UREA NITROGEN 19 MG/DL (7-18); CALCIUM LEVEL 9.9 MG/DL (8.8-10.2); CARBON DIOXIDE LEVEL 26 MEQ/L (21-32); CHLORIDE LEVEL 109 MEQ/L (98-107); CHOLESTEROL LEVEL 193 MG/DL (<200); CHOLESTEROL RISK RATIO 2.218 (<5); CREATININE FOR GFR 1.01 MG/DL (0.70-1.30); GLOMERULAR FILTRATION RATE > 60.0 (>49); GLUCOSE, FASTING 102 MG/DL (70-100); HDL CHOLESTEROL 87 MG/DL (>40); LDL CHOLESTEROL 95 MG/DL (<100); NON-HDL-C 106 MG/DL; POTASSIUM SERUM 4.5 MEQ/L (3.5-5.1); SODIUM LEVEL 141 MEQ/L (136-145); TOTAL PROTEIN 6.9 GM/DL (6.4-8.2); TRIGLYCERIDES LEVEL 55 MG/DL (<150)
== END ==
LOC: M LABDRAWC 11:15
PROVIDERS: ATTEND Physician Assistant
DX: E78.2 Mixed hyperlipidemia (principal); I48.19 Other persistent atrial fibrillation

== ENCOUNTER → 2022-02-25 | Outpatient (REF) | payer MEDICARE | LOC: M LABDRAWC 11:22 | PROVIDERS: ATTEND Physician Assistant | DX: E03.8 Other specified hypothyroidism (principal) ==

== ENCOUNTER → 2022-05-10 | Outpatient (CLI) | payer MEDICARE | LOC: M PLAIMG 10:42 | PROVIDERS: ATTEND Internal Medicine Pulmonary Disease | DX: R91.8 Other nonspecific abnormal finding of lung field (principal) ==

== ENCOUNTER 2022-07-26 17:03 | Emergency (ER) | payer MEDICARE ==
[~2022-07-26] VITALS: Ht 172.7 cm; Wt 88.5 kg
[2022-07-26 17:04] VITALS: BP 180/100
[2022-07-26] MEDS ORDERED: FAMO20TA5 (17:54)
[2022-07-26] MEDS ORDERED: LEVO25TA5 (17:54)
[2022-07-26] MEDS ORDERED: LOSA50TA28 PO (17:54)
[2022-07-26] MEDS ORDERED: PRED10TA2 (17:54)
== END 2022-07-26 17:53 | disposition left against medical advice (07) ==
LOC: M ED 17:03
DX: Z53.21 Procedure and treatment not carried out due to patient leaving prior to being seen by health care provider (principal)

== ENCOUNTER → 2022-09-13 | Outpatient (REF) | payer MEDICARE ==
[~2022-09-13] MED LIST changes: +FAMO20TA5; +LEVO25TA5; +LOSA50TA28 PO; +PRED10TA2
== END ==
LOC: M LABDRAWC 11:25
PROVIDERS: ATTEND Physician Assistant
DX: E03.2 Hypothyroidism due to medicaments and other exogenous substances (principal)

== ENCOUNTER → 2022-11-14 | Outpatient (CLI) | payer MEDICARE | LOC: M PLAIMG 10:22 | PROVIDERS: ATTEND Internal Medicine Pulmonary Disease | DX: R91.8 Other nonspecific abnormal finding of lung field (principal) ==

== ENCOUNTER → 2022-12-13 | Outpatient (REF) | payer MEDICARE ==
[2022-12-13 18:19] LABS: APPEARANCE, URINE CLEAR (CLEAR); BACTERIA, URINE AUTO NEGATIVE (NEGATIVE); BILIRUBIN, URINE AUTO NEGATIVE (NEGATIVE); BLOOD, URINE BLOOD NEGATIVE (NEGATIVE); COLOR, URINE YELLOW (YELLOW); GLUCOSE, URINE (UA) AUTO NEGATIVE (NEGATIVE); KETONE, URINE AUTO NEGATIVE (NEGATIVE); LEUKOCYTE ESTERASE, URINE AUTO NEGATIVE (NEGATIVE); NITRITE, URINE AUTO NEGATIVE (NEGATIVE); PROTEIN, URINE AUTO NEGATIVE (NEGATIVE); RBC, URINE AUTO 0 /HPF (0-3); SPECIFIC GRAVITY URINE AUTO 1.012 (1.002-1.035); SQUAMOUS EPITHELIAL CELL UR AU 0 /HPF (0-6); UROBILINOGEN, URINE AUTO 0.2 mg/dL (0.0-2.0); WBC, URINE AUTO 0 /HPF (0-3)
== END ==
LOC: M SMT 17:44
PROVIDERS: ATTEND Urology
DX: Z85.51 Personal history of malignant neoplasm of bladder (principal)

== ENCOUNTER → 2022-12-19 | Outpatient (REF) | payer MEDICARE ==
[2022-12-19 12:08] LABS: HEMATOCRIT 37.2 % (42.0-52.0); HEMOGLOBIN 12.4 g/dl (13.5-17.5); MEAN CORPUSCULAR HEMOGLOBIN 31.9 pg (27.0-33.0); MEAN CORPUSCULAR HGB CONC 33.3 g/dl (32.0-36.5); MEAN CORPUSCULAR VOLUME 95.6 fl (80.0-96.0); PLATELET COUNT, AUTOMATED 261 10^3/uL (150-450); RED BLOOD COUNT 3.89 10^6/uL (4.30-6.10); WHITE BLOOD COUNT 5.1 10^3/uL (4.0-10.0)
[2022-12-19 13:01] LABS: ALBUMIN 3.9 G/DL (3.2-5.2); ALKALINE PHOSPHATASE 81 U/L (46-116); ALT/SGPT 19 U/L (7.0-40); AST/SGOT 20 U/L (<34); BILIRUBIN,TOTAL 0.5 MG/DL (0.3-1.2); BLOOD UREA NITROGEN 22 MG/DL (9-23); CALCIUM LEVEL 9.4 MG/DL (8.3-10.6); CARBON DIOXIDE LEVEL 27 MMOL/L (20-31); CHLORIDE LEVEL 108 MMOL/L (98-107); CHOLESTEROL LEVEL 149 MG/DL (<200); CHOLESTEROL RISK RATIO 2.37 (<5); CREATININE FOR GFR 1.06 MG/DL (0.70-1.30); FREE T4 1.65 NG/DL (0.89-1.76); GLOMERULAR FILTRATION RATE > 60.0 (>42); GLUCOSE, FASTING 111 MG/DL (74-106); HDL CHOLESTEROL 62.8 MG/DL (>40); LDL CHOLESTEROL 73.2 MG/DL (<100); NON-HDL-C 86.2 MG/DL; POTASSIUM SERUM 4.3 MMOL/L (3.5-5.1); SODIUM LEVEL 140 MMOL/L (136-145); THYROID STIMULATING HORMONE 0.047 uIU/ML (0.55-4.78); TOTAL PROTEIN 6.9 G/DL (5.7-8.2); TRIGLYCERIDES LEVEL 65 MG/DL (<150)
== END ==
LOC: M LABDRAWC 11:13
PROVIDERS: ATTEND Physician Assistant
DX: I48.0 Paroxysmal atrial fibrillation (principal); E78.2 Mixed hyperlipidemia; E03.2 Hypothyroidism due to medicaments and other exogenous substances

== ENCOUNTER → 2023-04-28 | Outpatient (REF) | payer MEDICARE ==
[2023-04-28 14:26] LABS: THYROID STIMULATING HORMONE 16.695 uIU/ML (0.55-4.78)
[2023-04-28 14:27] LABS: BLOOD UREA NITROGEN 32 MG/DL (9-23); CALCIUM LEVEL 9.7 MG/DL (8.3-10.6); CARBON DIOXIDE LEVEL 27 MMOL/L (20-31); CHLORIDE LEVEL 105 MMOL/L (98-107); CREATININE FOR GFR 1.22 MG/DL (0.70-1.30); GLOMERULAR FILTRATION RATE > 60.0 (>42); GLUCOSE, FASTING 103 MG/DL (74-106); POTASSIUM SERUM 4.1 MMOL/L (3.5-5.1); SODIUM LEVEL 141 MMOL/L (136-145)
[2023-04-28 14:36] LABS: BASO # 0.1 10^3/uL (0.0-0.2); BASO % 1.1 % (0.0-1.0); EOS # 0.1 10^3/uL (0.0-0.5); HEMATOCRIT 38.7 % (42.0-52.0); HEMOGLOBIN 12.9 g/dl (13.5-17.5); LYMPH # 2.1 10^3/uL (1.5-5.0); LYMPH % 44.4 % (24.0-44.0); MEAN CORPUSCULAR HEMOGLOBIN 31.6 pg (27.0-33.0); MEAN CORPUSCULAR HGB CONC 33.3 g/dl (32.0-36.5); MEAN CORPUSCULAR VOLUME 94.9 fl (80.0-96.0); MONO # 0.6 10^3/uL (0.0-0.8); NEUTROPHILS # 1.8 10^3/uL (1.5-8.5); NEUTROPHILS % 38.3 % (36.0-66.0); PLATELET COUNT, AUTOMATED 247 10^3/uL (150-450); RED BLOOD COUNT 4.08 10^6/uL (4.30-6.10); WHITE BLOOD COUNT 4.7 10^3/uL (4.0-10.0)
== END ==
LOC: M LABDRAWC 12:36
PROVIDERS: ATTEND Physician Assistant
DX: R94.39 Abnormal result of other cardiovascular function study (principal); E03.2 Hypothyroidism due to medicaments and other exogenous substances

== ENCOUNTER → 2023-06-22 | Outpatient (REF) | payer MEDICARE ==
[2023-06-22 13:16] LABS: FREE T4 1.03 NG/DL (0.89-1.76)
[2023-06-22 13:17] LABS: THYROID STIMULATING HORMONE 8.005 uIU/ML (0.55-4.78)
== END ==
LOC: M LABDRAWC 10:55
PROVIDERS: ATTEND Physician Assistant
DX: E03.2 Hypothyroidism due to medicaments and other exogenous substances (principal)